=== PATIENT | female | born 1955 | race Caucasian/White ===

== ENCOUNTER → 2019-03-10 | Outpatient (REF) | payer MEDICARE ==
[~2019-03-10] MED LIST: /FEXO60TA OR; ACET65TA OR; ASPI81TA3 OR; Biotin PO; CELE1CAP4 OR; CELE1CAP4 PO; DARV100T OR; FLECTOR1.3 TOP; FLEXERIL OR; FLON0.05; KLOR10TA; KLOR10TA OR; LASI20TA OR; LOPI600T OR; Lutein PO; MAGN250T OR; METO-1 OR; MULTIVIT PO; NEUR300C OR; PROT1TAB2 OR; TRAM50TA2 OR; TRIPHASIL OR; Tylenol Arthritis PO; VERA120T OR; ZANA4CAP OR; ZETI10TA OR; ZOCO10TA OR; ZOCO10TA PO
== END ==
LOC: M LAB LCGH 11:09
PROVIDERS: ATTEND Obstetrics & Gynecology
DX: Z12.4 Encounter for screening for malignant neoplasm of cervix (principal)

== ENCOUNTER → 2020-03-29 | Outpatient (CLI) | payer MEDICARE ==
[~2020-03-29] MED LIST changes: +ALLE60TA69 PO; +DOXY-350 PO; +DOXY20TA4; +ECOT81TA5 PO; +EZET10TA21 PO; +FLUTISP INH; +GABA-843 PO; +GEMF600T5 PO; +LOPR1TAB6 PO; +MAGN400C2 PO; +METO25TA4 PO; +MULTCAP PO; +PANT40TA29 PO; +PREDOPD; +SIMV10TA21 PO; +VITA50005 PO
== END ==
LOC: M LABSMTC 10:11
PROVIDERS: ATTEND Anesthesiology
DX: Z01.818 Encounter for other preprocedural examination (principal); Z11.59 Encounter for screening for other viral diseases
CPT/HCPCS: C9803; U0003

== ENCOUNTER 2020-04-01 07:45 | Day surgery (SDC) | payer MEDICARE ==
[~2020-04-01] VITALS: Ht 157.5 cm; Wt 72.2 kg
[~2020-04-01 07:45] MED LIST changes: +CEFUROXIME 1MG/0.1ML INTRACAMERAL INJ As Ordered ONE; -DOXY-350 PO; -DOXY20TA4; +DUOVISC (0.50ML VISCOAT/0.55ML PROVISC) OPHTH KIT As Ordered ONE; +OFLOXACIN 0.3 % (OCUFLOX) OPTH SOL 5ML OS ONE; -PANT40TA29 PO; +PANT40TA3 PO; +PHENYLEPHRINE 2.5% OPHTH SOL 2ML OS ONE; +POVIDONE-IODINE 5% OPHTH PREP SOL 30ML As Ordered ONE; -PREDOPD; +PROPARACAINE 0.5% OPHTH SOL 15ML OS ONE; +TROPICAMIDE 1% OPHTH SOLN 2ML OS ONE; +UNRESOLVED CLARIFICATION ENTRY XX SCH
[2020-04-01] MEDS ORDERED: DOXY-350 PO (08:28)
[2020-04-01] MEDS ORDERED: fentaNYL 100 MCG/2 ML INJECTION (J3010) As Ordered ONE (09:17)
[2020-04-01] MEDS ORDERED: MIDAZOLAM INJ 2MG/2ML VIAL (J2250 PER 1MG) As Ordered ONE (09:18)
[2020-04-01] MEDS ORDERED: BSS IRR 500ML/OMIDRIA 4ML IRR BAG (OR ONLY) (J1097 PER ML) As Ordered ONE (09:28)
[2020-04-01 10:30] VITALS: BP 114/72
== END 2020-04-01 10:41 | disposition home or self-care (01) ==
LOC: M SDC 07:45
PROVIDERS: ATTEND Ophthalmology
DX: H25.12 Age-related nuclear cataract, left eye (principal); K21.9 Gastro-esophageal reflux disease without esophagitis; E11.9 Type 2 diabetes mellitus without complications; Z79.82 Long term (current) use of aspirin; Z79.899 Other long term (current) drug therapy; Z88.2 Allergy status to sulfonamides; Z88.1 Allergy status to other antibiotic agents; Z88.8 Allergy status to other drugs, medicaments and biological substances
CPT/HCPCS: 66984; J1097; J2250; J3010; V2632

== ENCOUNTER → 2020-04-10 | Outpatient (CLI) | payer MEDICARE ==
[~2020-04-10] MED LIST changes: -CEFUROXIME 1MG/0.1ML INTRACAMERAL INJ As Ordered ONE; +DOXY-350 PO; +DOXY20TA4; -DUOVISC (0.50ML VISCOAT/0.55ML PROVISC) OPHTH KIT As Ordered ONE; -OFLOXACIN 0.3 % (OCUFLOX) OPTH SOL 5ML OS ONE; +PANT40TA29 PO; -PANT40TA3 PO; -PHENYLEPHRINE 2.5% OPHTH SOL 2ML OS ONE; -POVIDONE-IODINE 5% OPHTH PREP SOL 30ML As Ordered ONE; +PREDOPD; -PROPARACAINE 0.5% OPHTH SOL 15ML OS ONE; -TROPICAMIDE 1% OPHTH SOLN 2ML OS ONE; -UNRESOLVED CLARIFICATION ENTRY XX SCH
== END ==
LOC: M LABSMTC 12:14
PROVIDERS: ATTEND Anesthesiology
DX: Z01.818 Encounter for other preprocedural examination (principal); Z11.59 Encounter for screening for other viral diseases
CPT/HCPCS: C9803; U0003

== ENCOUNTER → 2020-07-10 | Outpatient (CLI) | payer MEDICARE | LOC: M LABSMTC 09:28 | PROVIDERS: ATTEND Anesthesiology | DX: Z01.812 Encounter for preprocedural laboratory examination (principal); Z20.828 Contact with and (suspected) exposure to other viral communicable diseases | CPT/HCPCS: C9803; U0003 ==

== ENCOUNTER 2020-07-15 09:59 | Day surgery (SDC) | payer MEDICARE ==
[~2020-07-15] VITALS: Ht 157.5 cm; Wt 71.7 kg
[~2020-07-15 09:59] MED LIST changes: +ACETYLCHOLINE OPHTH SOLN 1% 2ML (MIOCHOL-E) As Ordered ONE; -DOXY20TA4; +DUOVISC (0.50ML VISCOAT/0.55ML PROVISC) OPHTH KIT As Ordered ONE; +OFLOXACIN 0.3 % (OCUFLOX) OPTH SOL 5ML OS ONE; +PHENYLEPHRINE 2.5% OPHTH SOL 2ML OS ONE; -PREDOPD; +PROPARACAINE 0.5% OPHTH SOL 15ML OS ONE; +TOBRADEX OPHTH OINT 3.5 GM As Ordered ONE; +TROPICAMIDE 1% OPHTH SOLN 2ML OS ONE; +TRYPAN BLUE 0.06 % 2.25 ML OPHTH SYR (VISIONBLUE) As Ordered ONE
[2020-07-15] MEDS ORDERED: ONDANSETRON 4MG/2ML VIAL IV ONE (10:45)
[2020-07-15] MEDS ORDERED: PREDOPD (10:45)
[2020-07-15] MEDS ORDERED: DOXY20TA4 (10:45)
[2020-07-15] MEDS ORDERED: BALANCED SALT IRRIGATION SOLUTION 500ML BAG (FOR OR EYE MACHINE) As Ordered ONE (11:22)
[2020-07-15] MEDS ORDERED: MIDAZOLAM INJ 2MG/2ML VIAL (J2250 PER 1MG) As Ordered ONE (11:31)
[2020-07-15] MEDS ORDERED: fentaNYL 100 MCG/2 ML INJECTION (J3010) As Ordered ONE (11:31)
[2020-07-15] MEDS ORDERED: ONDANSETRON 4MG/2ML VIAL As Ordered ONE (11:39)
[2020-07-15 13:20] VITALS: BP 104/68
== END 2020-07-15 13:30 | disposition home or self-care (01) ==
LOC: M SDC 09:59
PROVIDERS: ATTEND Ophthalmology
DX: H18 Other disorders of cornea (principal); E11.9 Type 2 diabetes mellitus without complications; K21.9 Gastro-esophageal reflux disease without esophagitis; Z79.899 Other long term (current) drug therapy; Z88.2 Allergy status to sulfonamides; Z88.1 Allergy status to other antibiotic agents; Z88.8 Allergy status to other drugs, medicaments and biological substances
CPT/HCPCS: 65756; 65757; 87070; 87075; 87102; 88300; J2250; J2405; J3010; V2785

== ENCOUNTER → 2021-05-20 | Outpatient (CLI) | payer MEDICARE ==
[~2021-05-20] MED LIST changes: -ACETYLCHOLINE OPHTH SOLN 1% 2ML (MIOCHOL-E) As Ordered ONE; +DOXY20TA4; -DUOVISC (0.50ML VISCOAT/0.55ML PROVISC) OPHTH KIT As Ordered ONE; +ERGO500029 PO; +FERR325T3 PO; +GABA-282 PO; -GABA-843 PO; +LOPI600T PO; +NO ITAB PO; -OFLOXACIN 0.3 % (OCUFLOX) OPTH SOL 5ML OS ONE; -PHENYLEPHRINE 2.5% OPHTH SOL 2ML OS ONE; +PREDOPD OS; -PROPARACAINE 0.5% OPHTH SOL 15ML OS ONE; -TOBRADEX OPHTH OINT 3.5 GM As Ordered ONE; -TROPICAMIDE 1% OPHTH SOLN 2ML OS ONE; -TRYPAN BLUE 0.06 % 2.25 ML OPHTH SYR (VISIONBLUE) As Ordered ONE; -VITA50005 PO
== END ==
LOC: M PLALAB 10:54
PROVIDERS: ATTEND Internal Medicine Gastroenterology
DX: D50.9 Iron deficiency anemia, unspecified (principal)

== ENCOUNTER → 2021-06-02 | Outpatient (CLI) | payer MEDICARE | LOC: M LABSMTC 09:28 | PROVIDERS: ATTEND Anesthesiology | DX: Z01.812 Encounter for preprocedural laboratory examination (principal) ==

== ENCOUNTER 2021-06-07 06:48 | Day surgery (SDC) | payer MEDICARE ==
[~2021-06-07] VITALS: Ht 157.5 cm; Wt 74.4 kg
[~2021-06-07 06:48] MED LIST changes: +NS 1,000 ML IV ONE
[2021-06-07] MEDS ORDERED: propofoL 200 MG/20 ML VIAL As Ordered ONE (07:06)
[2021-06-07] MEDS ORDERED: LIDOCAINE 2% 100MG/5ML SDV (FOR ANES.) As Ordered ONE (07:06)
[2021-06-07] MEDS ORDERED: fentaNYL 100 MCG/2 ML INJECTION (J3010) As Ordered ONE (07:36)
--- NOTE | 2021-06-07 07:54 | ROOR ---
Patient Name: Lissett Wells Procedure Date: 06/07/2021 7:32 AM Date of : 1955 Age: 65 Room: [facility] Gender: Female Note Status: Finalized Procedure: Upper GI endoscopy Indications: Iron deficiency anemia Providers: Nic Morton MD Referring MD: TO BOBO NP Requesting Provider: Medicines: Monitored Anesthesia Care Complications: No immediate complications. Procedure: Pre-Anesthesia Assessment: - The heart rate, respiratory rate, oxygen saturations, blood pressure, adequacy of pulmonary ventilation, and response to care were monitored throughout the procedure. The Endoscope was introduced through the mouth, and advanced to the second part of duodenum. The upper GI endoscopy was accomplished without difficulty. The patient tolerated the procedure well. Findings: The examined esophagus was normal. Multiple 8 to 12 mm semi-sessile fundic gland polyps were found in the gastric fundus and in the gastric body. While not currently bleeding or hemorrhagic, a few of the polyps are sizable/>1 cm. The polyps were removed with a cold snare. Resection and retrieval were complete. The exam of the stomach was otherwise normal. The examined duodenum was normal. Impression: - Normal esophagus. - Multiple fundic gland polyps. Resected and retrieved. - Normal examined duodenum. Recommendation: - Observe patient's clinical course. - Perform a colonoscopy today. Procedure Code(s): --- Professional --- 19579, Esophagogastroduodenoscopy, flexible, transoral; with removal of tumor(s), polyp(s), or other lesion(s) by snare technique Diagnosis Code(s): --- Professional --- K31.7, Polyp of stomach and duodenum D50.9, Iron deficiency anemia, unspecified CPT copyright 2019 [employer]. All rights reserved. The codes documented in this report are preliminary and upon director of revenue review may be revised to meet current compliance requirements. Nic Morton MD Nic Morton MD 06/07/2021 7:53:57 AM Electronically signed by Nic Morton MD Number of Addenda: 0 Note Initiated On: 06/07/2021 7:32 AM Estimated Blood Loss: Estimated blood loss: none.
--- NOTE | 2021-06-07 08:12 | ROOR ---
Patient Name: Lissett Wells Procedure Date: 06/07/2021 7:32 AM Date of : 1955 Age: 65 Room: [facility] Gender: Female Note Status: Finalized Procedure: Colonoscopy Indications: Iron deficiency anemia Providers: Nic Morton MD Referring MD: TO BOBO NP Requesting Provider: Medicines: Monitored Anesthesia Care Complications: No immediate complications. Procedure: Pre-Anesthesia Assessment: - The heart rate, respiratory rate, oxygen saturations, blood pressure, adequacy of pulmonary ventilation, and response to care were monitored throughout the procedure. The Colonoscope was introduced through the anus and advanced to 10 cm into the ileum. The colonoscopy was performed without difficulty. The patient tolerated the procedure well. The quality of the bowel preparation was good. Findings: The perianal and digital rectal examinations were normal. Three sessile polyps were found in the splenic flexure and hepatic flexure. The polyps were diminutive in size. These polyps were removed with a cold snare. Resection and retrieval were complete. Mild sigmoid diverticulosis and small internal hemorrhoids. The exam was otherwise without abnormality on direct and retroflexion views. Impression: - Three diminutive polyps at the splenic flexure and at the hepatic flexure, removed with a cold snare. Resected and retrieved. - Mild sigmoid diverticulosis and small internal hemorrhoids. - The colon and terminal ileum examinations are otherwise normal on direct and retroflexion views. Recommendation: - Repeat colonoscopy in 5 years for surveillance. - Perform a computed tomographic (CT scan) enterography at appointment to be scheduled. - My office will call you in the next few days to set you up for this study/exam. Procedure Code(s): --- Professional --- 00365, Colonoscopy, flexible; with removal of tumor(s), polyp(s), or other lesion(s) by snare technique Diagnosis Code(s): --- Professional --- D50.9, Iron deficiency anemia, unspecified K63.5, Polyp of colon CPT copyright 2019 [employer]. All rights reserved. The codes documented in this report are preliminary and upon head operator review may be revised to meet current compliance requirements. Nic Morton MD Nic Morton MD 06/07/2021 8:11:37 AM Electronically signed by Nic Morton MD Number of Addenda: 0 Note Initiated On: 06/07/2021 7:32 AM Estimated Blood Loss: Estimated blood loss: none.
[2021-06-07 08:38] VITALS: BP 114/77
== END 2021-06-07 08:40 | disposition home or self-care (01) ==
LOC: M OPP 06:48
PROVIDERS: ATTEND Internal Medicine Gastroenterology
DX: D50.9 Iron deficiency anemia, unspecified (principal); K57.30 Diverticulosis of large intestine without perforation or abscess without bleeding; K64.8 Other hemorrhoids; K63.5 Polyp of colon; C88.4 Extranodal marginal zone B-cell lymphoma of mucosa-associated lymphoid tissue [MALT-lymphoma]; Z79.82 Long term (current) use of aspirin; Z79.899 Other long term (current) drug therapy; Z88.1 Allergy status to other antibiotic agents; Z88.2 Allergy status to sulfonamides
CPT/HCPCS: 43251; 45385; 88305; 88342; J3010

== ENCOUNTER → 2021-06-10 | Outpatient (CLI) | payer MEDICARE ==
[~2021-06-10] MED LIST changes: -NS 1,000 ML IV ONE
[2021-06-10 13:34] LABS: BLOOD UREA NITROGEN 13 MG/DL (7-18); CREATININE FOR GFR 0.73 MG/DL (0.55-1.30); GLOMERULAR FILTRATION RATE > 60.0 (>45)
== END ==
LOC: M PLALAB 11:39
PROVIDERS: ATTEND Internal Medicine Gastroenterology
DX: D50.9 Iron deficiency anemia, unspecified (principal)

== ENCOUNTER → 2021-06-13 | Outpatient (CLI) | payer MEDICARE ==
[~2021-06-13] MED LIST changes: +GLUCAGON INJ 1MG VIAL As Ordered ONE; +ISOVUE-370 76% 100ML VIAL As Ordered ONE; +NEULUMEX 0.1% SUSPENSION 450ML BOTTLE (FORMERLY VOLUMEN) As Ordered ONE
--- NOTE | 2021-06-13 12:05 | REP ---
INDICATION: IRON DEFICIENCY ANEMIA COMPARISON: None. TECHNIQUE: CT Scan of the abdomen and pelvis was performed with intravenous administration of 100 cc of Isovue 370, and volumen oral contrast. Sagittal and coronal reconstruction images are performed. FINDINGS: Lung bases: Unremarkable. Liver: There is a lobulated 2.3 cm cyst in the inferior right lobe of the liver. There is mild hepatomegaly, the length of the liver is approximately 18.5 cm. Gallbladder: Unremarkable. Spleen: Normal. Adrenals: Normal. Pancreas: Normal. Kidneys: 3 subcentimeter hypodensities in the right kidney probably represent cysts. 1 subcentimeter hypodensity in the mid left kidney also probably represents a cyst. Small and large bowel: There is sigmoid and left colonic diverticulosis. No bowel wall thickening is visualized. Free fluid: None. Abdominal aorta: No aneurysm or dissection. Adenopathy: None. Appendix: Not inflamed. Osseous structures: There are degenerative changes of the spine without compression deformity. Pelvis: No mass. IMPRESSION: Sigmoid and left colonic diverticulosis. No evidence of bowel wall thickening or inflammation. No adenopathy or free fluid. Mild hepatomegaly. Cyst right lobe of liver inferiorly. <Electronically signed by Omid Britt > 06/13/21 1208
== END ==
LOC: M RAD 07:34
PROVIDERS: ATTEND Internal Medicine Gastroenterology
DX: D50.9 Iron deficiency anemia, unspecified (principal)
CPT/HCPCS: 74177; J1610; Q9967

== ENCOUNTER → 2021-06-29 | Outpatient (CLI) | payer MEDICARE ==
[~2021-06-29] MED LIST changes: -GLUCAGON INJ 1MG VIAL As Ordered ONE; -NEULUMEX 0.1% SUSPENSION 450ML BOTTLE (FORMERLY VOLUMEN) As Ordered ONE
--- NOTE | 2021-06-29 16:38 | REP ---
INDICATION: LYMPHOMA COMPARISON: None. TECHNIQUE: Standard helical technique after the intravenous administration of 100 cc Isovue 370 FINDINGS: There is no mediastinal or hilar adenopathy. There are no pleural or pericardial effusions. The imaged upper abdomen is within normal limits. The imaged osseous structures are within normal limits for the patient's age. Evaluation of the lung beard shows no abnormal nodules, masses, or opacities. IMPRESSION: CT findings are within normal limits. <Electronically signed by Remy Tracey > 06/29/21 2525
== END ==
LOC: M RAD 15:52
PROVIDERS: ATTEND Specialist
DX: C88.4 Extranodal marginal zone B-cell lymphoma of mucosa-associated lymphoid tissue [MALT-lymphoma] (principal)
CPT/HCPCS: 71260; Q9967

== ENCOUNTER → 2021-07-05 | Outpatient (CLI) | payer MEDICARE ==
[~2021-07-05] MED LIST changes: -ISOVUE-370 76% 100ML VIAL As Ordered ONE
--- NOTE | 2021-07-05 14:53 | RADONC.CN ---
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 This was diagnosed on routine endoscopy. She is seen today for consideration of RT. Diagnosis/Treatment History Oncologic History December 2020 noted to be anemic when she went to donate blood. Started on iron pills. Hgb went up to 12.5. On 06/07/21 she underwent EGD/colonoscopy to assess for GI bleeding sources and was found to have some sessile colon polyps which were removed as well as some fundic gland polyps which contained MALT lymphoma, H. Pylori negative. CT chest on 06/29/21 negative. Relevant data: 06/07/21 Pathology ADDENDUM No definite H. Pylori organisms are noted on immunostain in specimen A. 06/17/21748 Amendment: Electronically Signed by: Jen Philippe M.D. 06/17/21748 FINAL DIAGNOSIS A Fundic gland polyps, polypectomy: MALT(Mucosa Associated Lymphoid Tissue) lymphoma The B-cell PCR is positive for clonal B-cell proliferation. Multiple fundic gland polyp fragments are noted, focally showing the atypical lymphoid infiltrate. The slides and blocks on specimen A were sent to [facility] Hematopathology for consultation and further work up, please see report [id number] and [id number], scanned in EMR under pathology module. 4/TR B Splenic flexure, polyp, polypectomy: Adenomatous polyp/tubular adenoma. Some fragments also show hyperplastic polyp changes. C Hepatic flexure, polyp, polypectomy: Hyperplastic polyp. 06/15/21 - 730 Interval History Here with her . She has no GI complaints. History of GERD well- controlled, no diarrhea, no BRBPR or nausea. She has preserved energy and appetite, no pain in the abdomen. No fevers, weight loss or night sweats. Past Medical History: HTN GERD DMII Past Surgical History: L5 laminectomy Left corneal transplant Family History: Leukemia-mother's side Social History: Non-smoker Non-drinker Allergies / Meds Allergies: Coded Allergies: Sulfa (Sulfonamide Antibiotics) (Verified Allergy, Intermediate, HIVES, 05/24/21) ciprofloxacin (Verified Allergy, Intermediate, HIVES, 05/24/21) ENVIRONMENTAL (Verified Allergy, Unknown, SEASONAL, 05/24/21) verapamil (Verified Adverse Reaction, Intermediate, SEVERE HEART PALPATATIONS, 05/24/21) Home Meds Reported Medications Multivitamin with Minerals (Multiple Vitamin) 1 Each Tablet, 1 TAB PO DAILY, TAB 05/24/21 Gemfibrozil (Lopid) 600 Mg Tablet, 600 MG PO BID, TAB 05/24/21 Prednisolone Acetate (Prednisolone Acetate 1% Opth Susp) 5 Ml Drops.susp, OS DAILY 07/15/20 Fexofenadine HCl (Leigh Allergy) 60 Mg Tablet, 60 MG PO BID, TAB 03/25/20 Magnesium Oxide (Magnesium) 400 Mg Capsule, 400 MG PO DAILY, CAP 03/25/20 Pantoprazole Sodium (Pantoprazole Sodium) 40 Mg Tablet.dr, 40 MG PO DAILY 03/25/20 Ergocalciferol (Vitamin D2) (Vitamin D2) 50,000 Units Cap, 31107 UNITS PO QMONTH 03/25/20 Fluticasone Propionate (Fluticasone Propionate) 16 Gm Hubbell.susp, 16 GM INH BID 03/25/20 Ezetimibe (Ezetimibe) 10 Mg Tablet, 10 MG PO DAILY 03/25/20 Simvastatin (Simvastatin) 10 Mg Tablet, 10 MG PO DAILY 03/25/20 Metoprolol Tartrate (Metoprolol Tartrate) 25 Mg Tablet, 12.5 MG PO QHS 03/25/20 Gabapentin (Gabapentin) 300 Mg Capsule, 300 MG PO TID 03/25/20 [Tylenol Arthritis] No Conflict Check, 2 TABS PO BIDP 05/13/12 Review of Systems Constitutional: Denies: Fever, Night Sweats, Fatigue, Weight Loss Eyes: Denies: Pain HEENT: Denies: Head Aches Skin: Denies: Rash Pulmonary: Denies: Dyspnea, Cough Cardiovascular: Denies: Chest Pain Gastrointestinal: Denies: Abdominal Pain, Hematochezia Hematologic: Denies: Bruising, Bleeding Excessively Endocrine: Denies: Cold Intolerance Musculoskeletal: Denies: Neck pain, Arm pain, Hand pain Neurological: Denies: Weakness, Numbness Psych: Reports: Mood Normal Vital Signs Ht 62" Wt 162 lbs T 98 P 67 RR 18 BP 121/79 O2 99% Pain 0 Fatigue 0 General Exam: Alert, Cooperative, No Acute Distress Eye Exam: PERRLA, EOMI ENT EXAM: Atraumatic Neck Exam: Supple Chest Exam: Clear to auscultation, Normal air movement Heart Exam: Rate Normal, Regular Rhythm Abdomen Exam: Soft; Negative: Tenderness Extremity Exam: Negative: Edema Skin Exam: Nl turgor and temperature Neuro Exam: Normal Gait, Normal Speech, Cranial Nerves 3-12 NL Psych Exam: Mental status NL Diagnostic and Laboratory Diagnostic Review Radiologic images, relevant labs and pathology reports were personally reviewed and discussed with Ms. Wells. Assessment and Plan Impression Ms. 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 This was diagnosed on routine endoscopy. She is seen today for consideration of RT. Stage Gastric ANY lymphoma stage IE H. Pylori negative Performance Status ECOG 0 Plan We had an extensive discussion with Ms. Wells regarding the diagnosis at hand and available therapeutic options. She is doing well overall, she has no real GI symptoms, she is on protonix 40 mg daily for her GERD which works well. Her pathology was negative for H pylori. Because of this ISRT is the preferred treatment for localized gastric MALT lymphoma. I recommended 24 Gy in 12 fractions with 4DCT/ITV/DCA planning this dose is well-tolerated and unlikely to provoke any serious symptoms. We discussed the logistics of receiving radiation therapy in detail including the need for a 1-time planning session. I reviewed the possible toxicities of treatment including fatigue, reflux, and nausea. All of which would be expected to be self-limited. I explained that post-treatment, repeat endoscopy at 6 months would be indicated to confirm CR, she could be followed clinically from there without routine endoscopy unless symptoms develop. After discussing the risks, benefits and alternatives to radiation therapy, Ms. Wells was amenable to pursuing radiotherapy. All questions were answered to the patient's satisfaction. We instructed the patient that if there were any questions,concerns or changes in clinical status in the interim to contact us. Recommendations ISRT 24 Gy in 12 fractions with 4DCT/ITV/DCA planning Simulation in the coming weeks Billing Statement Total time of [38] minutes was spent preparing for the visit [2], obtaining HPI [6], examining the patient [2], reviewing diagnostic tests [3], discussing management options [15], coordinating care [1], and writing this note [9]. RYLAN SALAZAR MD Jul 05, 2021 14:53
== END ==
LOC: M ONCR 12:45
PROVIDERS: ATTEND General Practice
DX: C88.4 Extranodal marginal zone B-cell lymphoma of mucosa-associated lymphoid tissue [MALT-lymphoma] (principal); K21.9 Gastro-esophageal reflux disease without esophagitis; J30.2 Other seasonal allergic rhinitis; Z79.899 Other long term (current) drug therapy; Z86.010 Personal history of colon polyps; Z88.1 Allergy status to other antibiotic agents; Z88.2 Allergy status to sulfonamides; Z88.8 Allergy status to other drugs, medicaments and biological substances

== ENCOUNTER 2021-07-14 08:43 | Outpatient (RCR) | payer MEDICARE | END 2021-07-24 | LOC: M ONCR 08:43 | PROVIDERS: ATTEND General Practice | DX: C88.4 Extranodal marginal zone B-cell lymphoma of mucosa-associated lymphoid tissue [MALT-lymphoma] (principal) ==

== ENCOUNTER 2021-08-09 14:56 | Outpatient (RCR) | payer MEDICARE ==
[2021-11-15] MEDS ORDERED: SLOW142T5 PO (11:05)
== END 2021-08-23 ==
LOC: M ONCR 14:56
PROVIDERS: ATTEND General Practice
DX: C88.4 Extranodal marginal zone B-cell lymphoma of mucosa-associated lymphoid tissue [MALT-lymphoma] (principal)

== ENCOUNTER → 2021-11-15 | Outpatient (CLI) | payer MEDICARE ==
[~2021-11-15] MED LIST changes: +SLOW142T5 PO
== END ==
LOC: M ONCR 10:48
PROVIDERS: ATTEND Radiology Radiation Oncology
DX: C88.4 Extranodal marginal zone B-cell lymphoma of mucosa-associated lymphoid tissue [MALT-lymphoma] (principal); J30.2 Other seasonal allergic rhinitis; Z88.1 Allergy status to other antibiotic agents; Z88.2 Allergy status to sulfonamides; Z88.8 Allergy status to other drugs, medicaments and biological substances; Z92.3 Personal history of irradiation

== ENCOUNTER → 2022-02-02 | Outpatient (CLI) | payer MEDICARE | LOC: M LABSMTC 09:47 | PROVIDERS: ATTEND Anesthesiology | DX: Z01.812 Encounter for preprocedural laboratory examination (principal); Z20.822 Contact with and (suspected) exposure to COVID-19 ==

== ENCOUNTER 2022-02-07 06:38 | Day surgery (SDC) | payer MEDICARE ==
[~2022-02-07] VITALS: Ht 157.5 cm; Wt 71.6 kg
[~2022-02-07 06:38] MED LIST changes: +LIDOCAINE 2% 100MG/5ML SDV (FOR ANES.) As Ordered ONE; +NS 1,000 ML IV ONE; +propofoL 200 MG/20 ML VIAL As Ordered ONE
[2022-02-07] MEDS ORDERED: ONDANSETRON 4MG/2ML VIAL As Ordered ONE (07:14)
[2022-02-07] MEDS ORDERED: fentaNYL 100 MCG/2 ML INJECTION As Ordered ONE (07:14)
[2022-02-07 08:15] VITALS: BP 103/70
== END 2022-02-07 08:32 | disposition home or self-care (01) ==
LOC: M OPP 06:38
PROVIDERS: ATTEND Internal Medicine Gastroenterology
DX: C88.4 Extranodal marginal zone B-cell lymphoma of mucosa-associated lymphoid tissue [MALT-lymphoma] (principal); K31.7 Polyp of stomach and duodenum; Z85.028 Personal history of other malignant neoplasm of stomach; Z92.3 Personal history of irradiation; Z79.02 Long term (current) use of antithrombotics/antiplatelets; Z79.899 Other long term (current) drug therapy; Z88.1 Allergy status to other antibiotic agents; Z88.2 Allergy status to sulfonamides; Z88.8 Allergy status to other drugs, medicaments and biological substances
CPT/HCPCS: 43239; 43251; 88305; J2405; J3010

== ENCOUNTER → 2022-03-15 | Outpatient (CLI) | payer MEDICARE ==
[~2022-03-15] MED LIST changes: -LIDOCAINE 2% 100MG/5ML SDV (FOR ANES.) As Ordered ONE; -NS 1,000 ML IV ONE; -propofoL 200 MG/20 ML VIAL As Ordered ONE
== END ==
LOC: M ONCR 14:18
PROVIDERS: ATTEND General Practice
DX: C88.4 Extranodal marginal zone B-cell lymphoma of mucosa-associated lymphoid tissue [MALT-lymphoma] (principal); R53.83 Other fatigue; R68.81 Early satiety; J30.2 Other seasonal allergic rhinitis; Z79.899 Other long term (current) drug therapy; Z88.1 Allergy status to other antibiotic agents; Z88.2 Allergy status to sulfonamides; Z88.8 Allergy status to other drugs, medicaments and biological substances; Z92.3 Personal history of irradiation

== ENCOUNTER → 2023-03-14 | Outpatient (CLI) | payer MEDICARE ==
[~2023-03-14] MED LIST changes: -DOXY-350 PO; +DOXY-444 PO; +FLUT50SP17 INH; -FLUTISP INH; +TIMO0.5S20
== END ==
LOC: M ONCR 14:15
PROVIDERS: ATTEND General Practice
DX: C88.4 Extranodal marginal zone B-cell lymphoma of mucosa-associated lymphoid tissue [MALT-lymphoma] (principal); J30.89 Other allergic rhinitis; Z71.2 Person consulting for explanation of examination or test findings; Z79.51 Long term (current) use of inhaled steroids; Z79.899 Other long term (current) drug therapy; Z86.16 Personal history of COVID-19; Z88.1 Allergy status to other antibiotic agents; Z88.2 Allergy status to sulfonamides; Z88.8 Allergy status to other drugs, medicaments and biological substances; Z92.3 Personal history of irradiation

== ENCOUNTER 2023-05-25 11:03 | Day surgery (SDC) | payer MEDICARE ==
[~2023-05-25] VITALS: Ht 157.5 cm; Wt 70.8 kg
[~2023-05-25 11:03] MED LIST changes: +NS 1,000 ML IV ONE
[2023-05-25] MEDS ORDERED: propofoL 200 MG/20 ML VIAL As Ordered ONE (12:18)
[2023-05-25] MEDS ORDERED: GLYCOPYRROLATE INJ 0.2 MG/ML 2 ML VIAL As Ordered ONE (12:18)
[2023-05-25] MEDS ORDERED: LIDOCAINE 2% 100MG/5ML SDV (FOR ANES.) As Ordered ONE (12:18)
[2023-05-25 12:43] VITALS: TEMP 97
[2023-05-25 13:04] VITALS: BP 132/80; O2SAT 96
== END 2023-05-25 13:10 | disposition home or self-care (01) ==
LOC: M OPP 11:03
PROVIDERS: ATTEND Internal Medicine Gastroenterology
DX: K31.7 Polyp of stomach and duodenum (principal); K29.70 Gastritis, unspecified, without bleeding; C88.4 Extranodal marginal zone B-cell lymphoma of mucosa-associated lymphoid tissue [MALT-lymphoma]; E11.9 Type 2 diabetes mellitus without complications; Z87.898 Personal history of other specified conditions; Z79.1 Long term (current) use of non-steroidal anti-inflammatories (NSAID); Z79.51 Long term (current) use of inhaled steroids; Z79.83 Long term (current) use of bisphosphonates; Z79.891 Long term (current) use of opiate analgesic; Z79.899 Other long term (current) drug therapy; Z88.1 Allergy status to other antibiotic agents; Z88.2 Allergy status to sulfonamides; Z88.8 Allergy status to other drugs, medicaments and biological substances

== ENCOUNTER → 2024-04-23 | Outpatient (CLI) | payer MEDICARE ==
[~2024-04-23] MED LIST changes: +DOXY-440 PO; -DOXY-444 PO; -DOXY20TA4; +DOXY20TA6; -FLUT50SP17 INH; +FLUTISP INH; -NS 1,000 ML IV ONE
== END ==
LOC: M ONCR 09:21
PROVIDERS: ATTEND General Practice
DX: C88.4 Extranodal marginal zone B-cell lymphoma of mucosa-associated lymphoid tissue [MALT-lymphoma] (principal); K57.90 Diverticulosis of intestine, part unspecified, without perforation or abscess without bleeding; Z88.1 Allergy status to other antibiotic agents; Z79.899 Other long term (current) drug therapy; Z88.2 Allergy status to sulfonamides; Z88.8 Allergy status to other drugs, medicaments and biological substances; J30.89 Other allergic rhinitis; Z92.3 Personal history of irradiation

== ENCOUNTER 2024-11-11 08:53 | Day surgery (SDC) | payer MEDICARE ==
[~2024-11-11] VITALS: Ht 157.5 cm; Wt 66.3 kg
[~2024-11-11 08:53] MED LIST changes: +GABA-1172 PO; -GABA-282 PO; +GLYCOPYRROLATE INJ 0.2 MG/ML 2 ML VIAL As Ordered ONE; +LIDOCAINE 2% 100MG/5ML SDV (FOR ANES.) As Ordered ONE; -TIMO0.5S20; +TIMO0.5S20 OU; +fentaNYL 100 MCG/2 ML INJECTION As Ordered ONE; +propofoL 200 MG/20 ML VIAL As Ordered ONE
[2024-11-11] MEDS ORDERED: ePHEDrine SULFATE 25 MG/5 ML(5MG/ML) SYRINGE As Ordered ONE (10:42)
[2024-11-11 11:07] VITALS: TEMP 97.4
[2024-11-11 11:31] VITALS: BP 121/71; O2SAT 98
== END 2024-11-11 11:35 | disposition home or self-care (01) ==
LOC: M OPP 08:53
PROVIDERS: ATTEND Internal Medicine Gastroenterology
DX: D12.0 Benign neoplasm of cecum (principal); K29.50 Unspecified chronic gastritis without bleeding; K57.30 Diverticulosis of large intestine without perforation or abscess without bleeding; K64.8 Other hemorrhoids; K57.32 Diverticulitis of large intestine without perforation or abscess without bleeding; C88.40 Extranodal marginal zone B-cell lymphoma of mucosa-associated lymphoid tissue [MALT-lymphoma] not having achieved remission; B96.81 Helicobacter pylori [H. pylori] as the cause of diseases classified elsewhere; K31.89 Other diseases of stomach and duodenum; Z88.1 Allergy status to other antibiotic agents; Z88.2 Allergy status to sulfonamides; Z88.8 Allergy status to other drugs, medicaments and biological substances; Z91.048 Other nonmedicinal substance allergy status; Z79.899 Other long term (current) drug therapy
CPT/HCPCS: 43239; 45385; 88305; J1596; J3010

== ENCOUNTER → 2024-11-27 | Outpatient (CLI) | payer MEDICARE ==
[~2024-11-27] MED LIST changes: -GLYCOPYRROLATE INJ 0.2 MG/ML 2 ML VIAL As Ordered ONE; -LIDOCAINE 2% 100MG/5ML SDV (FOR ANES.) As Ordered ONE; -fentaNYL 100 MCG/2 ML INJECTION As Ordered ONE; -propofoL 200 MG/20 ML VIAL As Ordered ONE
== END ==
LOC: M ONCR 07:57
PROVIDERS: ATTEND General Practice
DX: C88.40 Extranodal marginal zone B-cell lymphoma of mucosa-associated lymphoid tissue [MALT-lymphoma] not having achieved remission (principal); Z79.899 Other long term (current) drug therapy; Z92.3 Personal history of irradiation; Z88.1 Allergy status to other antibiotic agents; Z88.2 Allergy status to sulfonamides; Z88.8 Allergy status to other drugs, medicaments and biological substances; J30.89 Other allergic rhinitis

== ENCOUNTER → 2024-12-15 | Outpatient (CLI) | payer MEDICARE | LOC: M PLARAD 10:59 | PROVIDERS: ATTEND General Practice | DX: C88.40 Extranodal marginal zone B-cell lymphoma of mucosa-associated lymphoid tissue [MALT-lymphoma] not having achieved remission (principal) | CPT/HCPCS: 78815; A9552 ==

== ENCOUNTER → 2025-04-28 | Outpatient (CLI) | payer MEDICARE ==
[~2025-04-28] MED LIST changes: +ACYC-438 PO; +ALCL0.05; +PROC10TA5 PO
== END ==
LOC: M ONCR 07:41
PROVIDERS: ATTEND General Practice
DX: C88.40 Extranodal marginal zone B-cell lymphoma of mucosa-associated lymphoid tissue [MALT-lymphoma] not having achieved remission (principal); Z92.3 Personal history of irradiation; Z79.620 Long term (current) use of immunosuppressive biologic; Z88.1 Allergy status to other antibiotic agents; Z88.2 Allergy status to sulfonamides; Z88.8 Allergy status to other drugs, medicaments and biological substances; J30.89 Other allergic rhinitis; Z79.51 Long term (current) use of inhaled steroids; Z79.899 Other long term (current) drug therapy